=== PATIENT | male | born 1985 | race Caucasian/White ===

== ENCOUNTER 2017-01-10 12:24 | Emergency (ER) ==
[2017-01-10 12:34] VITALS: BP 130/82; TEMP 99.3; BMI 27.6
--- NOTE | 2017-01-10 13:31 | CT ---
EXAM: CT right elbow without intravenous contrast 01/10/2017. Sagittal and coronal reformatted chani ges obtained HISTORY: Pain. Trauma COMPARISON: None. FINDINGS: There is extensive edema throughout the posterior subcutaneous fat. The deeper muscular compartments of the extremity appear grossly within normal limits. Normal anatomic alignment of the osseous structures. There is no evidence of fracture or dislocatio n. IMPRESSION: Diffuse subcutaneous edema. This is most severe posterior to the olecranon. No acute osseous abnormality. If there is clinical concern for ligamentous/tendinous pathology then follow-up MRI could be perform ed.
--- NOTE | 2017-01-10 13:48 | ED.PDOC ---
General ED Provider: Dr. 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 Denies: Redness, Bruising, Fever, Weakness, Numbness, Tingling Related Surgical History: Reports: None Elbow Findings: Present: Swelling Tenderness: Present: Lateral Condyle Limited Range of Motion: Present: Flexion, Extension Differential Diagnoses: Closed Fracture, Joint Effusion, Sprain, Strain, Tendonitis, Bursitis Review of Systems - Review Of Systems Constitutional: Reports: No symptoms Eyes: Reports: No symptoms Ears, Nose, Mouth, Throat: Reports: No symptoms Respiratory: Reports: No symptoms Cardiac: Reports: No symptoms GI: Reports: No symptoms : Reports: No symptoms Musculoskeletal: Reports: Joint pain (right elbow) Skin: Reports: No symptoms Neurological: Reports: No symptoms Endocrine: Reports: No symptoms Hematologic/Lymphatic: Reports: No symptoms All Other Systems: Reviewed and Negative Past Medical History - Past Medical History Previously Healthy: Yes Endocrine: Reports: None Cardiovascular: Reports: None Respiratory: Reports: None Hematological: Reports: None Gastrointestinal: Reports: None Genitourinary: Reports: None Neuro/Psych: Reports: None Musculoskeletal: Reports: None Cancer: Reports: None - Surgical History General Surgical History: Reports: None - Family History Family History: Reports: None - Social History Smoking Status: Former smoker Hx Substance Use: No Alcohol Screening: None - Immunizations Tetanus Shot up to Date: Yes (2 yrs ago) Physical Exam - Physical Exam Appearance: Well-appearing, No pain distress, Well-nourished Eyes: GERI, EOMI, Conjunctiva clear ENT: Ears normal, Nose normal, Oropharynx normal Respiratory: Airway patent, Breath sounds clear, Breath sounds equal, Respirations nonlabored Cardiovascular: RRR, Pulses normal, No rub, No murmur GI/: Soft, Nontender, No masses, Bowel sounds normal, No Organomegaly Musculoskeletal: Limited ROM (right elbow, edema ) Skin: Warm, Dry, Normal color Neurological: Sensation intact, Motor intact, Reflexes intact, Cranial nerves intact, Alert, Oriented Psychiatric: Affect appropriate, Mood appropriate Interpretation - Radiology Interpretation Radiology Results: Positive (foft issue injury) Critical Care Note - Critical Care Note Total Time (mins): 0 Course - Course Orders, Labs, Meds: Orders Category Date Time Status CT ELBOW RIGHT WO CONTRAST Stat RADS 01/10/17 12:45 Ordered Vital Signs: Temp Pulse Resp BP Pulse Ox 01/10/17 12:24 99.3 F 75 20 130/82 97 Departure - Departure Time of Disposition: 13:50 (with deisi we both stressed need for MRI CHRISTINE) Disposition: HOME SELF-CARE Discharge Problem: Right elbow pain Instructions: Arthralgia (ED), Elbow Sprain (ED), Swollen Joint (ED) Condition: Good Pt referred to PMD for follow-up: No Additional Instructions: Please call your Family Physician as soon as possible to schedule a follow-up appointment. must get an mri as soon as possible Allergies/Adverse Reactions: Allergies No Known Allergies Allergy (Unverified 01/10/17 12:32) Home Medications: Ambulatory Orders 1 [No Reported Medications] 01/10/17
== END 2017-01-10 13:49 | disposition home or self-care (01) ==
LOC: ED 12:24
DX: M25.521 Pain in right elbow (principal); R60.0 Localized edema; W22.8XXA Striking against or struck by other objects, initial encounter
CPT/HCPCS: 99282